=== PATIENT | male | born 1950 | race Caucasian/White ===

== ENCOUNTER 2020-09-26 00:50 | Inpatient (IN) | payer OTHER ==
[2020-09-26] VITALS (13 sets, daily range): BP systolic 87–170; BP diastolic 54–85
[~2020-09-26] VITALS: Ht 175.3 cm; Wt 91.6 kg
--- NOTE | ~2020-09-26 | EEG ---
[address] [address] EEG STUDY REPORT Name: LISY MONTESINOS Room: [address] IN M.R.#: [id number] Admission: 09/26/20 Attend Phys: Destiney Greene MD Discharge: Date of : 54 Report #: [id number] THIS REPORT FOR: cc: FAM - No family physician/PCP FAM - No family physician/PCP Thiago Benites MD ~ DATE OF SERVICE: 09/26/2020 This patient is being evaluated for a seizure and altered mental status. EEG was done by placing the electrode by standard 10-20 system of electrode placement. Both referential and sequential montages were used for recording. Background activity is about 8 Hz and 30 microvolt. This patient is very restless and a lot of artifact is present. The patient became drowsy and that was associated with bilateral slowing and vertex sharp waves. Throughout the record, no active epileptiform activity was noticed. IMPRESSION: Suboptimal EEG because the patient did not cooperate. EEG does not appear to be showing any active epileptiform activity, but it is slow and poorly formed. That is a nonspecific abnormality, which can occur with encephalopathy, effect of psychotropic medication, etc. Clinical correlation is recommended. By: [id number] Benites MD /nt
[2020-09-26 01:19] LABS: URINE BILIRUBIN NEGATIVE (Negative); URINE BLOOD 2+ (Negative); URINE CLARITY CLEAR; URINE COLOR YELLOW; URINE GLUCOSE-RANDOM NEGATIVE (Negative); URINE KETONES NEGATIVE (Negative); URINE LEUKOCYTES-REFLEX NEGATIVE (Negative); URINE NITRITE-REFLEX NEGATIVE (Negative); URINE PROTEIN TRACE (Negative); URINE SPECIFIC GRAVITY 1.025 (1.005-1.030); URINE UROBILINOGEN 0.2 E.U./dl (0.2-1.0)
[2020-09-26 01:23] LABS: ABSOLUTE EOSINOPHILS 0.1 thou/uL (0.0-0.7); ABSOLUTE LYMPHOCYTES 0.8 thou/uL (0.8-5.3); ABSOLUTE MONOCYTES 0.5 thou/uL (0.0-1.2); ABSOLUTE NEUTROPHILS 5.5 thou/uL (1.6-8.1); BASOPHILS 0.3 %; EOSINOPHILS 0.8 %; HEMATOCRIT 41.4 % (42.0-52.0); HEMOGLOBIN 14.4 gm/dL (14.0-18.0); LYMPHOCYTES 11.7 %; MCH 31.8 pg (26.0-34.0); MCHC 34.7 g/dL (28.0-37.0); MCV 91.6 fL (80.0-100.0); MONOCYTES 6.7 %; MPV 7.3 fl. (7.2-11.1); NUCLEATED RBCS 0 /100WBC; PLATELET COUNT* 147 thou/uL (150-400); POLYS 80.5 %; RBC 4.52 mil/uL (4.50-6.00); RDW-CV 14.1 % (10.5-14.5); WBC 6.8 thou/uL (4.0-11.0)
[2020-09-26 01:32] LABS: CALCIUM 8.8 mg/dL (8.5-10.1); POTASSIUM 3.5 mmol/L (3.5-5.1)
[2020-09-26 01:34] LABS: PROTIME 10.9 Seconds (9.20-11.50)
[2020-09-26 01:38] LABS: BE -3.4 mmol/L (-2 to +3); PCO2 42.5 mmHg (35.0-45.0); PO2 94.3 mmHg (75.0-100.0); pH 7.338 (7.340-7.450)
[2020-09-26 01:43] LABS: CRYSTALS None Seen /LPF (None Seen); HYALINE CASTS 0-3 Few /LPF (None Seen); MUCUS None Seen strn/LPF (None Seen); SQUAMOUS 0-3 Few /LPF (0-3); URINE WBC-REFLEX 0-5 Rare /HPF (0-5)
[2020-09-26 01:44] LABS: BACTERIA-REFLEX None Seen /HPF (None Seen); URINE RBC 3-10 Few /HPF (0-2)
[2020-09-26 01:45] LABS: ALBUMIN 3.9 g/dL (3.4-5.0); MAGNESIUM 1.9 mg/dL (1.8-2.4); TOTAL BILIRUBIN 0.4 mg/dL (<0.1-1.0); TOTAL PROTEIN 7.5 g/dL (6.4-8.2)
[2020-09-26 01:46] LABS: AMP/METHAMP Negative (Negative); BARBITURATES Negative (Negative); BENZODIAZEPINES Negative (Negative); COCAINE Negative (Negative); METHADONE Negative (Negative); OPIATES Negative (Negative); PCP Negative (Negative); THC POSITIVE (Negative)
[2020-09-26] MEDS ORDERED: NORVASC5 MG PO (01:47)
[2020-09-26] MEDS ORDERED: VALPROIC ACID250 MG PO (01:48)
[2020-09-26] MEDS ORDERED: FLOMAX0.4 MG PO (01:49)
[2020-09-26] MEDS ORDERED: B COMPLEX1 EACH PO (01:49)
--- NOTE | 2020-09-26 02:45 | NUR ---
PT UNABLE TO BE TAKEN FOR CT SCAN, HE IS EXCESSIVELY RESTLESS. PT PULLING AT ANDERSON, IV'S AND O2 TUBING. VERSED ORDERED FOR TRANSPORT AND TESTING. PT ON MOBILE MONITOR WITH NURSE, TECH AND PUTTY MIXER AT TABLE SIDE. VSS.
--- NOTE | 2020-09-26 07:03 | NUR ---
RECEIVED REPORT FROM POLISHER AND BUFFER AND ZACK CEDENO. PATIENT BROUGHT TO UNIT AROUND 0550. CARDIAC MONITORING IN PLACE. ASSESSMENT COMPLETED CHARTED. PATIENT ORIENTED TO UNIT, ROOM, BED, CALL-LIGHT, AND HOSPITAL POLICY. PATIENT REMAINS CONFUSED AND RESPONDS ONLY WHEN TOUCHED AND CALLED BY NAME. PATIENT FOLLOWS COMMANDS SOME OF THE TIME BUT IS DROWSY OTHERWISE. HOURLY ROUNDING IN PLACE FOR PATIENT SAFETY. FALL PRECAUTIONS IN PLACE FOR PATIENT SAFETY. BED LOCKED AND IN LOWEST POSITION. BED ALARM ON CLWR.
--- NOTE | 2020-09-26 07:57 | NUR ---
ASSUMED CARE OF PT 0700. PT REMAINS LETHARGIC, REQUIRES STIMULI WITH VOICE AND TOUCH TO ROUSE, AGITATED WHEN AWAKE, RESPONDS TO ORIENTATION QUESTIONS WITH ANSWERS SUCH "WOULDN'T YOU LIKE TO KNOW", "KNOCK IT OFF", "UNFORTUANTELY" ETC. SQUEEZES HANDS ON COMMAND BUT REFUSES TO FOLLOW OTHER COMMANDS, KNOWS HE IS IN THE HOSITAL. UNABLE TO ASSESS SWALLOWING AT THIS TIME. FALL AND SEIZURE PRECATIONS IN PLACE. PT ATTEMPTS TO REMOVE ALL MONITORING EQUIPMENT AND IV ACCESS. VITAL SIGNS STABLE. WILL CONITNUE TO MONITOR.
--- NOTE | 2020-09-26 09:05 | NUR ---
CM SPK W/PT'S SO, PHYLLIS. PHYLLIS STATED THEY LIVE IN [facility], ABOUT 3HR AWAY, STAYED THE NIGHT IN HOTEL IN [place] D/T DR. AMIN AT [facility] WHEN PT HAD SIEZURE IN THE HOTEL. PT HAS NO HX WITH HH OR SNF. PT HAS NO DME. PT INDEPENDENT W/CARES AND ACTIVE. RETIRED. PLANS IS FOR PT TO RTR[place] HOME AT [place].
--- NOTE | 2020-09-26 10:07 | NUR ---
DANNY, BOOKMOBILE LIBRARIAN AND GAVIN AQUINO AT BEDSIDE WITH THIS RN, ATTEMPTING TO PLACE EEG LEADS, PT REMAINS CONFUSED AND UNCOOPERATIVE, DR ADELR ON UNIT, ORDERED BILAT SOFT WRIST RESTRAINTS, APPLIED PER ORDERS. UNABLE TO MONITOR PT ON TELE MONITOR DUE TO PT PULLING OFF ALL LEADS AND THRASHING IN BED. PT UNABLE TO BE REORIENTED, PT DOES NOT UNDERSTAND EDUCATION PROVIDED. DR HOWARD LOCKHART. WILL CONTINUE TO MONITOR PT,
--- NOTE | 2020-09-26 11:25 | NUR ---
RESTRAINTS DC'D PER ORDERS. PT CALM AND COOPERATIVE AT THIS TIME.
--- NOTE | 2020-09-26 14:18 | EKG ---
[place] [address] ELECTROCARDIOGRAM REPORT Name: LISY MONTESINOS Room: [address] ADM IN .R.#: [id number] Admission: 09/26/20 Attend Phys: Destiney Greene, Discharge: Date of : 54 Date of Service: 09/26/20 0053 Report #: [id number] THIS REPORT FOR: //name// [facility] ED Test Date: 2020-09-26 Test Time: 00:53:51 Pat Name: LISY MONTESINOS Department: Room: [facility] Gender: M Funnel Setter: [place] : 1950 Requested By: Criselda Hale Order Number: [id number] MD: Von Peoples Measurements Intervals [place] Rate: 93 P: 67 NC: 186 QRS: -48 QRSD: 99 T: 51 QT: 390 QTc: 486 Interpretive Statements Sinus rhythm Left anterior fascicular block Low voltage, precordial leads Abnormal R-wave progression, late transition Borderline prolonged QT interval No previous ECG available for comparison Electronically Signed On 09-26-2020 14:18:43 CDT by Von Peoples [email or web address] <ELECTRONICALLY SIGNED> By: Von Peoples MD, FACC 09/26/20 1418 005 Von Peoples MD, FAC /EPI
--- NOTE | 2020-09-26 18:29 | NUR ---
ASSUMED CARE 0700, ASSESSMENTS COMPLETED, SEE CHART FOR DETAILS, VITALS CHARTED. PT HAS REMAINED CONFUSED AND AGITATED THROUGHOUT SHIFT. DOES NOT REDIRECT, DOES NOT UNDERSTAND EDUCATION AND SAFETY PLAN, SITER AT BEDSIDE, OFTEN SITTER AND PTS S/O OR THIS RN REQURIED TO KEEP PT SAFELY IN BED AND IV/ANDERSON INTACT. PT REFUSES TO KEEP CLOTHES ON OR COVERED WITH BLANKET. PT REFUSES TO KEEP MONITORING DEVICES ON. VITALS WILL CONTINUE TO BE MONITORED Q4 HRS AND NEEDED. PT IS NOT ORIENTED TO TIME, PLACE, OR SITUATION. WILL CONTINUE MONITOR.
--- NOTE | 2020-09-26 18:57 | NUR ---
PROVIDED DINAA MCKEON WITH INFORMATION REGARDING SAFETY FOR THIS PT. DIANA MCKEON STATED 'I WILL TALK TO CECELIA, HAVE THE NIGHT CHARGE CALL ME.' PT IS NOT SAFE TO BE ALONE IN ROOM. SITTER, S/O, AND PT RN HAS BEEN IN ROOM TRYING TO KEEP PT SAFELY IN BED, AND KEEPING TUBES AND LINES IN PLACE. PT CONSTANTLY PULLING MONITORING EQUIPMENT AND MITTENS OFF.
--- NOTE | 2020-09-26 23:52 | NUR ---
INITAL ASSESMENT COMPLETED AT 1999. ONE TO ONE SITTER AT BEDSIDE TO MAINTAIN IV, ANDERSON, MONITORING EQUIPMENT AND PREVENT PT FROM SELF HARM. PT ORIENTED TO PERSON ONLY, NOT UNDERSTANDING OR FOLLOWING COMMANDS. PT ATTEMPTING TO CLIMB OUT OF BED AND REMOVE IV, ANDERSON, AND MONITORING EQUIPMENT. PT TRANSFERED TO TELEMETRY FLOOR AT 2300. REPORT GIVEN TO JESUS DIXON.
[2020-09-27 00:03] VITALS: BP 136/78
[2020-09-27 03:39] VITALS: BP 124/66
--- NOTE | 2020-09-27 05:03 | NUR ---
PT TRANSFERRED FROM ICU BED 5 TO 204 DURING THIS SHIFT; VSS, A+OX1, DROWSY, ROOM AIR, BEDBOUND, MONICA PATENT, 1:1 SITTER. HE IS ABLE TO COMMUNICATE HIS NEEDS TO STAFF WITH SOME DIFFICULTY; HE IS CONFUSED AND FORGETFUL WELL DROWSY. 1:1 SITTER MAINTAINED. HE HAS DENIED THE NEED FOR PAIN MEDICATION UP TO THIS TIME. MONICA REMAINS PATENT.
[2020-09-27 08:00] VITALS: BP 142/86
--- NOTE | 2020-09-27 14:34 | NUR ---
Agitated and combative yesterday, zyprexa and ativan given. Neuro consulted. Med adjustments today. Anticipate dc soon
[2020-09-27 16:00] VITALS: BP 142/80
--- NOTE | 2020-09-27 16:29 | NUR ---
PT SLEEPING MOST OF SHIFT. WAKES EASILY AND ANSWERS QUESTIONS. PT A&OX3. CONFUSED/FORGETFUL AT TIMES, BUT EASY TO REDIRECT. SEIZURE PRECAUTIONS IN PLACE. IV TO LFA PATENT, FLUIDS RUNNING ORDERED. UPDATED AY BEDSIDE. PT REMAINS ON ROOM AIR, 96% O2 SAT. IV TO LAC SALINE LOCKED AT THIS TIME. PT SWALLOWED PI;;LS THIS AM WITHOUT DIFFICULTY. NO PRN ATIVAN GIVEN THIS SHIFT IT WAS NOT INDICATED. PT RESTS IN ROOM WITH CALL LIGHT IN REACH, ROOM IN VIEW OF NURSES STATION. WILL CONTINUE TO MONITOR
[2020-09-27 20:00] VITALS: BP 165/85
[2020-09-27 23:56] VITALS: BP 157/87
[2020-09-28 04:43] VITALS: BP 166/88
--- NOTE | 2020-09-28 06:18 | NUR ---
NO ACUTE CHANGES THROUGHOUT SHIFT. ALL ROUNDINGS COMPLETED, ALL NEEDS MET. BED LOCKED AND IN LOW POSITION, CALL LIGHT AND PERSONAL ITEMS IN REACH.
[2020-09-28 07:50] VITALS: BP 157/88
[2020-09-28 08:00] VITALS: BP 154/88
[2020-09-28] MEDS ORDERED: VIMPAT50 MG PO (08:56)
--- NOTE | 2020-09-28 09:49 | NUR ---
AM ASSSEMENT COMPLETED BY NETWORK DIRECTOR AND THIS RN. ASSESSMENT CHARTING REVIEWED, CONCUR WITH ASSESSMENT NO CHANGES NOTED. PATIENT ANXIOUS, THIS AM REASSURANCE GIVEN. DENIES HEADACHE, DIZZINESS OR ANY DISCOMFORT AT THIS TIME. AT BEDSIDE WILL MONITOR.
[2020-09-28] MEDS ORDERED: TRILEPTAL150 MG PO (10:46)
[2020-09-28 11:27] VITALS: BP 137/84
--- NOTE | 2020-09-28 12:53 | NUR ---
DISCHARGE ORDERS RECEIVED. CAPPER MACHINE OPERATOR AND SALINE LOCK DC'D. NO SIGN OF SEIZURE ACTIVITY DURING THIS SHIFT. CONTINUES TO DENY DIZZINESS, HEADACHE OR ANY DISCOMFORT TO NURSING. ANDERSON CATH DC'D - VOIDING W/O DIFFICULTY POST REMOVAL. TOLERATING DIET. PATIENT AND EDUCATED ON DISCHARGE INSTRUCTIONS, VERBALIZED UNDERSTANDING HAVING NO QUESTIONS. INSTRUCTED PATIENT NOT TO DRIVE UNTIL CLEARED BY DOCTOR DUE TO SEIZURE. GIVEN WRITTEN DISCHARGE INSTRUCTIONS FOR REINFORCEMENT TEACHING. ALL PERSONAL BELONGINGS GATHERED BY PATIENT AND FOR DISCHARGE.
[2020-09-28 12:58] VITALS: BP 137/84
== END 2020-09-28 13:52 | disposition home or self-care (01) | DRG 101 ==
LOC: M.ERS 00:50 → M.TBA-ER 02:50 → M.ICU 02:50 → M.2W 23:35
PROVIDERS: Emergency Medicine; ADMIT Internal Medicine; ATTEND Internal Medicine
DX: G40.901 Epilepsy, unspecified, not intractable, with status epilepticus (principal); E87.2 Acidosis; F12.90 Cannabis use, unspecified, uncomplicated; I10 Essential (primary) hypertension; I95.2 Hypotension due to drugs; Z20.822 Contact with and (suspected) exposure to COVID-19; Z98.42 Cataract extraction status, left eye; Z98.41 Cataract extraction status, right eye